=== PATIENT | male | born 1985 | race Caucasian/White ===

== ENCOUNTER 2018-05-03 08:51 | Emergency (ER) | payer MEDICAID ==
[2018-05-03 09:10] VITALS: BP 140/81
--- NOTE | 2018-05-03 09:23 | ED Physician Documentation ---
PD HPI URI - Stated complaint Stated Complaint: SORE THROAT/MALE - Chief complaint Chief Complaint: General - History obtained from History obtained from: Patient - History of Present Illness Timing - onset: How many days ago (few days of malaise, myalgias, feeling of fatigue and chills. Some burning dysuria, feeling c/w prior chlamydia in the past (several times). Had unprotected intercourse 3 1/2 weeks ago with new partner.) Timing duration: Days Timing details: Gradual onset Associated symptoms: Chills, Sore throat, Swollen nodes. No: Nasal congestion, Chest pain, NVD Contributing factors: No: Travel, Immunocompromised Review of Systems Constitutional: reports: Myalgias, Fatigue. denies: Fever, Chills Ears: denies: Drainage/discharge Nose: denies: Rhinorrhea / runny nose, Congestion Throat: reports: Sore throat Respiratory: denies: Cough Skin: denies: Rash, Lesions Neurologic: reports: Generalized weakness PD PAST MEDICAL HISTORY - Past Medical History Cardiovascular: None Respiratory: None Endocrine/Autoimmune: None GI: GERD, Hiatal hernia : Other HEENT: None Psych: None Musculoskeletal: None, Chronic back pain Derm: None - Past Surgical History Past Surgical History: Yes Ortho: ACL reconstruction - Present Medications Home Medications: Ambulatory Orders Medication Instructions Recorded Confirmed HYDROcod/ACETAM 5/325 [Vicodin 1 - 2 ea PO Q6H PRN #15 tablet 12/01/15 5/325] Cyclobenzaprine [Flexeril] 10 mg PO TID PRN #20 tablet 05/09/16 HYDROcod/ACETAM 5/325 [[place] 5/325] 1 - 2 ea PO Q6H PRN #15 tablet 05/09/16 predniSONE [Deltasone] 60 mg PO DAILY 5 Days tablet 05/09/16 Doxycycline Monohydrate 100 mg PO BID #20 tablet 05/03/18 Ondansetron HCl [Zofran] 4 mg PO Q6H PRN #15 tablet 05/03/18 - Allergies Allergies/Adverse Reactions: Allergies Allergy/AdvReac Type Severity Reaction Status Date / Time citrus AdvReac Respiratory Uncoded 11/30/15 22:53 - Social History Does the pt smoke?: Yes Smoking Status: Current every day smoker Does the pt drink ETOH?: No Does the pt have substance abuse?: No - Immunizations Immunizations are current?: No Immunizations: TDAP >10years/unknown - POLST Patient has POLST: No PD ED PE NORMAL - Vitals Vital signs reviewed: Yes - General General: Alert and oriented X 3, Well developed/nourished - HEENT HEENT: Moist mucous membranes, Pharynx benign, Dentition benign - Neck Neck: Supple, no meningeal sign, Other (mild anterior adenopathy) - Cardiac Cardiac: RRR, No murmur - Respiratory Respiratory: Clear bilaterally - Abdomen Abdomen: Soft, Non tender - Male Male : Deferred - Rectal Rectal: Deferred - Back Back: No CVA TTP - Derm Derm: Normal color, Warm and dry, No rash Results - Vitals Vitals: Vital Signs - 24 hr 05/03/18 08:59 Temperature 36.5 C Heart Rate 79 Respiratory 18 Rate Blood Pressure 140/81 H O2 Saturation 97 Oxygen O2 Source Room air - Labs Labs: Laboratory Tests 05/03/18 05/03/18 05/03/18 09:04 09:04 09:55 WBC 8.2 RBC 5.33 Hgb 15.9 Hct 45.6 MCV 85.6 MCH 29.9 MCHC 34.9 RDW 13.0 Plt Count 248 MPV 7.7 Neut # (Auto) 5.4 Lymph # (Auto) 2.1 [place] # (Auto) 0.5 Eos # (Auto) 0.2 Baso # (Auto) 0.1 Absolute Nucleated RBC 0.00 Nucleated RBC % 0.0 Urine Color YELLOW Urine Clarity CLEAR Urine pH 6.0 Ur Specific [place] <=1.005 Urine Protein NEGATIVE Urine Glucose (UA) NEGATIVE Urine Ketones NEGATIVE Urine Occult Blood NEGATIVE Urine Nitrite NEGATIVE Urine Bilirubin NEGATIVE Urine Urobilinogen 0.2 (NORMAL) Ur Leukocyte Esterase NEGATIVE Ur Microscopic Review NOT INDICATED Urine Culture Comments NOT INDICATED Infectious [place] Assay Group A Strep Rapid Negative 05/03/18 09:55 WBC RBC Hgb Hct MCV MCH MCHC RDW Plt Count MPV Neut # (Auto) Lymph # (Auto) [place] # (Auto) Eos # (Auto) Baso # (Auto) Absolute Nucleated RBC Nucleated RBC % Urine Color Urine Clarity Urine pH Ur Specific [place] Urine Protein Urine Glucose (UA) Urine Ketones Urine Occult Blood Urine Nitrite Urine Bilirubin Urine Urobilinogen Ur Leukocyte Esterase Ur Microscopic Review Urine Culture Comments Infectious [place] Assay NEGATIVE Group A Strep Rapid PD MEDICAL DECISION MAKING - ED course Complexity details: reviewed results, d/w patient (sore throat and viral symptoms/malaise, with recent unprotected sex encounter worried about Chlamydia. I would be concerned about HIV conversion symptoms. ) - Sepsis Event Vital Signs: Vital Signs - 24 hr 05/03/18 08:59 Temperature 36.5 C Heart Rate 79 Respiratory 18 Rate Blood Pressure 140/81 H O2 Saturation 97 Oxygen O2 Source Room air Departure - Departure Disposition: 01 Home, Self Care Clinical Impression: Viral syndrome, Dysuria Condition: Stable Record reviewed to determine appropriate education?: Yes Instructions: ED Viral Syndrome Prescriptions: Doxycycline Monohydrate 100 mg PO BID #20 tablet Ondansetron HCl [Zofran] 4 mg PO Q6H PRN #15 tablet PRN Reason: Nausea / Vomiting Comments: We can treat you with doxycycline for presumed chlamydia. The culture test for that will result in 2 or 3 days. The HIV test is a send out so we will get the result tomorrow and call you with that. For now we will presume a viral illness. Your strep and mono tests are negative. Drink lots of fluids and use Tylenol if needed for aches and fevers. Ondansetron if needed for nausea. Recheck if not improved over the next few days. Discharge Date/Time: 05/03/18 11:06
[2018-05-03] MEDS ORDERED: ONDANSETRON ODT 4 MG TABLET TL STA (09:45)
[2018-05-03] MEDS ORDERED: ACETAMINOPHEN 325 MG TABLET PO STA (09:45)
[2018-05-03 10:00] LABS: BILIRUBIN,URINE NEGATIVE (NEGATIVE); GLUCOSE, URINE (UA) NEGATIVE (NEGATIVE); KETONES,URINE (UA) NEGATIVE (NEGATIVE); LEUKOCYTE ESTERASE, URINE NEGATIVE (NEGATIVE); NITRITE,URINE NEGATIVE (NEGATIVE); OCCULT BLOOD,URINE NEGATIVE (NEGATIVE); PROTEIN,URINE NEGATIVE (NEGATIVE); UROBILINOGEN,URINE 0.2 (NORMAL) E.U./dL (NORMAL)
[2018-05-03 10:01] LABS: CLARITY,URINE CLEAR (CLEAR)
[2018-05-03 10:05] LABS: BASOPHILS # (AUTO) 0.1 10^3/uL (0.0-0.1); BASOPHILS % (AUTO) 0.7 %; EOSINOPHILS # (AUTO) 0.2 10^3/uL (0.0-0.7); EOSINOPHILS % (AUTO) 2.3 %; HGB - HEMOGLOBIN 15.9 g/dL (14.0-18.0); LYMPHOCYTES # (AUTO) 2.1 10^3/uL (1.5-3.5); LYMPHOCYTES % (AUTO) 25.1 %; MEAN CORPUSCULAR HEMOGLOBIN 29.9 pg (27.0-31.0); MEAN CORPUSCULAR HGB CONC 34.9 g/dL (32.0-36.0); MEAN CORPUSCULAR VOLUME 85.6 fL (80.0-94.0); MEAN PLATELET VOLUME 7.7 fL (7.4-11.4); MONOCYTES # (AUTO) 0.5 10^3/uL (0.0-1.0); MONOCYTES % (AUTO) 5.9 %; NEUTROPHILS # (AUTO) 5.4 10^3/uL (1.5-6.6); PLT - PLATELET COUNT 248 10^3/uL (130-450); RED BLOOD COUNT 5.33 10^6/uL (4.70-6.10); WHITE BLOOD COUNT 8.2 x10^3/uL (4.8-10.8)
[2018-05-03] MEDS ORDERED: DOXYCYCLINE 100 MG TABLET PO STA (10:13)
[2018-05-04 15:11] LABS: HIV AG/AB 4TH GEN NON-REACTIVE (NON-REACTIVE)
== END 2018-05-03 11:06 | disposition home or self-care (01) ==
LOC: ED 08:51
DX: B34.9 Viral infection, unspecified (principal); R30.0 Dysuria; F17.200 Nicotine dependence, unspecified, uncomplicated
CPT/HCPCS: 81003; 85025; 86308; 87070; 87389; 87430; 87491; 87591; 99283; A9270; Q0162; 81001; 87086

== ENCOUNTER 2020-09-15 15:24 | Emergency (ER) | payer MEDICAID ==
--- NOTE | 2020-09-15 16:02 | ED Physician Documentation ---
PD HPI BACK PAIN - Stated complaint Stated Complaint: BACK INJ - Chief complaint Chief Complaint: Back Pain - History obtained from History obtained from: Patient - Additional information Additional information: He slipped and fell down a muddy embankment 2 nights ago and hurt his low back and right ribs. No other injuries. Pain is fairly severe. He has a long history of back problems with the last few years have not been too bad. No weakness,, numbness, tingling, saddle anesthesia, fevers. Review of Systems Constitutional: reports: Reviewed and negative Eyes: reports: Reviewed and negative Ears: reports: Reviewed and negative Nose: reports: Reviewed and negative Throat: reports: Reviewed and negative Cardiac: reports: Reviewed and negative Respiratory: reports: Reviewed and negative PD PAST MEDICAL HISTORY - Past Medical History Past Medical History: Yes Cardiovascular: None Respiratory: None Endocrine/Autoimmune: None GI: GERD, Hiatal hernia : Other HEENT: None Psych: None Musculoskeletal: None, Chronic back pain Derm: None - Past Surgical History Past Surgical History: Yes Ortho: ACL reconstruction - Present Medications Home Medications: Ambulatory Orders Medication Instructions Recorded Confirmed Acetaminophen [Acetaminophen Extra 500 mg PO DAILY 09/15/20 09/15/20 Strength] HYDROcod/ACETAM 5/325 [[place] 5/325] 1 - 2 tab PO Q6H PRN #15 tablet 09/15/20 Ibuprofen [Motrin] 600 mg PO BID 09/15/20 09/15/20 - Allergies Allergies/Adverse Reactions: Allergies Allergy/AdvReac Type Severity Reaction Status Date / Time citrus AdvReac Respiratory Uncoded 09/15/20 15:45 - Social History Does the pt smoke?: Yes Smoking Status: Current every day smoker Does the pt drink ETOH?: No Does the pt have substance abuse?: No - Immunizations Immunizations are current?: No Immunizations: TDAP >10years/unknown - POLST Patient has POLST: No PD ED PE NORMAL - Vitals Vital signs reviewed: Yes - General General: Alert and oriented X 3, No acute distress - Back Back: Other (TTP to upper lumbar spine and right low ribs laterally. No ecchymosis or limited range of motion.) - Extremities Extremities: Other (The patient has equal and normal Achilles and patellar reflexes bilaterally. Normal sensation in all areas of the legs. Patient denies saddle anesthesia. Normal strength in flexion-extension at the ankles, knees, and flexion of the hips.) - Neuro Neuro: Alert and oriented X 3, Normal speech Results - Vitals Vitals: Vital Signs - 24 hr 09/15/20 15:35 Temperature 37.0 C Heart Rate 86 Respiratory 18 Rate Blood Pressure 136/96 H O2 Saturation 97 Oxygen O2 Source Room air - Rads (name of study) XR R ribs and L spine Radiology: EMP read contemporaneously (NAD) Departure - Departure Disposition: Home, Self Care Clinical Impression: Strain of back muscle, Spasm of thoracic back muscle Fall Qualifiers: Encounter type: initial encounter Qualified Code(s): W19.XXXA - Unspecified fall, initial encounter Condition: Good Record reviewed to determine appropriate education?: Yes Instructions: ED Low Back Pain Injury Prescriptions: HYDROcod/ACETAM 5/325 [[place] 5/325] 1 - 2 tab PO Q6H PRN #15 tablet PRN Reason: Pain Comments: Followup with your primary care next available appt. Return if worse
--- NOTE | 2020-09-15 16:43 | XRAY Report ---
PROCEDURE: Ribs w/PA Chest RT INDICATIONS: back i nj TECHNIQUE: 2 views of the right ribs were acquired, along with a single view chest. COMPARISON: None FINDINGS: Surgical changes and devices: None. Bones and chest wall: No fractures or dislocations. No suspicious bony lesions. Overlying soft tis sues appear unremarkable. Lungs and pleura: No pleural effusions or pneumothorax. Lungs appear clear. Mediastinum: Mediastinal contours appear normal. Heart size is normal. IMPRESSION: No evidence of displaced right rib fracture. No evidence of acute pulmonary process. Reviewed by: Jeanmarie Enriquez MD on 09/15/2020 4:42 PM PST Approved by: Jeanmarie Enriquez MD on 09/15/2020 4:42 PM PST Station ID: [id number]
--- NOTE | 2020-09-15 16:44 | XRAY Report ---
PROCEDURE: Lumbar Spine 2 View INDICATIONS: back i nj TECHNIQUE: 2 views of the lumbar spine were acquired. COMPARISON: None. FINDINGS: Bones: 5 [id number] vertebrae are present. There is normal bony alignment. No vertebral body compression fractures. No suspicious bony lesions. Soft tissues: Overlying bowel gas pattern is normal. No suspicious soft tissue calcifications. IMPRESSION: Unremarkable lumbar spine plain films. Reviewed by: Jeanmarie Enriquez MD on 09/15/2020 4:43 PM PST Approved by: Jeanmarie Enriquez MD on 09/15/2020 4:43 PM PST Station ID: [id number]
[2020-09-15 17:02] VITALS: BP 132/69
== END 2020-09-15 17:02 | disposition home or self-care (01) ==
LOC: ED 15:24
DX: S39.012A Strain of muscle, fascia and tendon of lower back, initial encounter (principal); R07.81 Pleurodynia; W17.81XA Fall down embankment (hill), initial encounter; M62.830 Muscle spasm of back; F17.200 Nicotine dependence, unspecified, uncomplicated
CPT/HCPCS: 99283

== ENCOUNTER 2023-01-11 15:15 | Emergency (ER) | payer MEDICAID ==
[2023-01-11 15:31] VITALS: BP 136/81
--- NOTE | 2023-01-11 15:48 | ED Physician Documentation ---
History of Present Illness - Stated complaint Stated Complaint: LT LEG/GROIN NUMB - Chief complaint Chief Complaint: Ext Problem - History obtained from History obtained from: Patient - Additonal information Additional information: 37-year-old gentleman who has chronic recurrent sciatica. He had an MRI a in 2016 showing a left sided extrusion at L5-S1. For the last 4 weeks he has had left-sided back pain radiating around the left buttock with numbness in the left groin not associated with incontinence. His left leg feels funny. It hurts to lift his right leg. He denies fevers. There was no recent injury. PD PAST MEDICAL HISTORY - Past Medical History Cardiovascular: None Respiratory: None Endocrine/Autoimmune: None GI: GERD, Hiatal hernia : Other HEENT: None Psych: None Musculoskeletal: None, Chronic back pain Derm: None - Past Surgical History Past Surgical History: Yes Ortho: ACL reconstruction - Present Medications Home Medications: Ambulatory Orders Medication Instructions Recorded Confirmed Cyclobenzaprine [Flexeril] 10 mg PO TID PRN #20 tablet 01/11/23 HYDROcod/ACETAM 5/325 [[place] 5/325] 1 - 2 tab PO Q6H PRN #15 tablet 01/11/23 predniSONE [Deltasone] 20 mg PO [id number] #21 tab 01/11/23 - Allergies Allergies/Adverse Reactions: Allergies Allergy/AdvReac Type Severity Reaction Status Date / Time citrus AdvReac Respiratory Uncoded 09/15/20 15:45 - Social History Does the pt smoke?: Yes Smoking Status: Current every day smoker Does the pt drink ETOH?: No Does the pt have substance abuse?: No - Immunizations Immunizations are current?: No Immunizations: TDAP >10years/unknown - POLST Patient has POLST: No PD ED PE NORMAL - Vitals Vital signs reviewed: Yes - General General: Alert and oriented X 3, No acute distress - Abdomen Abdomen: Non tender - Back Back: Other (Tender in the left sciatic notch) - Derm Derm: Normal color, Warm and dry - Extremities Extremities: Other (Mild tingling left thigh compared to right, otherwise equal bilateral lower extremity reflexes, sensation, and strength.) - Neuro Neuro: Alert and oriented X 3, Normal speech Results - Vitals Vitals: Vital Signs - 24 hr 01/11/23 15:26 Temperature 36.3 C L Heart Rate 63 Respiratory 17 Rate Blood Pressure 136/81 H O2 Saturation 97 Oxygen O2 Source Room air PD Medical Decision Making - ED course ED course: This patient has seemingly uncomplicated musculoskeletal back pain. The patient has no "red flags." Specifically denies IV drug use, fevers, incontinence, saddle anesthesia. Spinal epidural abscess was considered, given that the patient has no fever, is not diabetic, has no spinal tenderness, does not use IV drugs, and has no bilateral neurologic symptoms, the diagnosis of spinal epidural abscess is considered exceedingly unlikely. Departure - Departure Disposition: Home, Self Care Clinical Impression: Sciatica Condition: Good Record reviewed to determine appropriate education?: Yes Instructions: ED Sciatica Prescriptions: predniSONE [Deltasone] 20 mg PO [id number] #21 tab Cyclobenzaprine [Flexeril] 10 mg PO TID PRN #20 tablet PRN Reason: Spasms HYDROcod/ACETAM 5/325 [[place] 5/325] 1 - 2 tab PO Q6H PRN #15 tablet PRN Reason: Pain Comments: I sent your prescriptions electronically to [facility] in [place]. Call your doctor to arrange a follow-up appointment, make the next available appointment. In the interim, return anytime if worse or if new symptoms develop. I am prescribing a short course of narcotic pain medication for you. These are potentially dangerous and addictive medications that should be used carefully. These medications may constipate you. Take an [id number] stool softener (docusate) twice daily with plenty of water while taking these medications. If you go 24 hours without a bowel movement, take [id number] miralax, per package instructions. Do not drink or drive while taking these medications. If you received narcotic or sedating medications while in the emergency department, do not drive for 24 hours. Store this medication in a safe, secure place and out of reach of children. It is a violation of federal law to give or sell this medication to another per son or to use in a manner other than prescribed. The ED will not refill narcotic prescriptions, including prescriptions lost or stolen. To dispose of unwanted medications: 1. [facility] at [address] in [place] has a medication drop box. They accept prescription medications (in pill form) Monday through Monday 9:00 a.m. to 5:00 p.m. 2. The [facility] [employer] accepts prescription medications (in pill form only) for disposal year round. Call for more information. 3. Contact the [facility] for the next [facility] sponsored prescription drug collection event. , [phone], or [phone]; Note that many narcotic pain relievers also contain Tylenol/acetaminophen. Please ensure that your total dose of acetaminophen from all sources does not exceed 3 g (3000 mg) per day.
== END 2023-01-11 16:02 | disposition home or self-care (01) ==
LOC: ED 15:15
DX: M54.30 Sciatica, unspecified side (principal); F17.200 Nicotine dependence, unspecified, uncomplicated
CPT/HCPCS: 99283